=== PATIENT | male | born 1955 | race Caucasian/White ===

== ENCOUNTER 2021-12-15 07:03 | Emergency (ER) | payer MEDICARE, OTHER ==
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
[2021-12-15] MEDS: KETOROLAC 60 MG/2 ML VIAL IM STA (08:06)
[2021-12-15] MEDS: CHERRY SYRUP 10 ML UDC PO ONE (08:06)
[2021-12-15] MEDS: DEXAMETHASONE 10 MG/ML VIAL PO STA (08:06)
--- NOTE | 2021-12-15 08:18 | XRAY Report ---
PROCEDURE: Pelvis 1 View INDICATIONS: pain at ishial tuberosity ? avulsion TECHNIQUE: 1 view(s) of the pelvis acquired. COMPARISON: None. FINDINGS: Bones: There is a linear fragment adjacent to the right superior acetabulum. No suspicious bony lesio ns. Soft tissues: Visualized bowel gas pattern is normal. No suspicious soft tissue calcifications. IMPRESSION: Linear calcification adjacent to the right superior acetabulum. No priors are available for comparison. Avulsion injury of indeterminate age cannot be excluded. Reviewed by: Cheyenne Long MD on 12/15/2021 8:16 AM PDT Approved by: Cheyenne Long MD on 12/15/2021 8:16 AM PDT Station ID: [id number]
[2021-12-15 08:47] VITALS: BP 152/91
== END 2021-12-15 08:50 | disposition home or self-care (01) ==
LOC: ED 07:03
DX: S76.311A Strain of muscle, fascia and tendon of the posterior muscle group at thigh level, right thigh, initial encounter (principal); X58.XXXA Exposure to other specified factors, initial encounter; Y93.02 Activity, running; Y92.008 Other place in unspecified non-institutional (private) residence as the place of occurrence of the external cause
CPT/HCPCS: 72170; 99283; 99284; A9270